=== PATIENT | male | born 1975 | race Caucasian/White ===

== ENCOUNTER 2022-11-07 12:05 | Emergency (ER) | payer OTHER, SELFPAY ==
--- NOTE | ~2022-11-07 | CT_ITS ---
EXAMINATION: CTA chest PE protocol DATE: 11/07/2022 15:41 INDICATION: Pleuritic chest pain TECHNIQUE: Computed tomography (CT) pulmonary angiogram of the chest was performed with 100 mL Omnipa que-350 intravenous contrast. Additional 3D reconstructions utilizing coronal maximum intensity proje ction (MIP) were performed. The dose-length product was 796.63 mGy-cm. COMPARISON: None FINDINGS: Excellent contrast opacification of the pulmonary arteries. There is mild streak artifact from dense contrast in the superior vena cava and right atrium. Mild scattered respiratory motion artifact which does not significantly limit evaluation. No pulmonary embolism. Mild discoid atelectasis in the ling yojana and bilateral lower lobes. Calcified right lower lobe nodule, calcified right hilar and mediastin al lymph nodes and small splenic calcifications, all consistent with old granulomatous disease. No pn eumonia, pulmonary edema or pleural effusion. Heart size is normal. No pericardial effusion. Thoracic aorta is normal in caliber with no dissection. No pathologically enlarged thoracic lymphadenopathy. Mild thoracic spondylosis. IMPRESSION: 1. No pulmonary embolism or other acute cardiopulmonary disease. Reviewed, dictated and finalized at location L. NNA INSTALLER
--- NOTE | ~2022-11-07 | XR_ITS ---
Clinical Indication: Chest pressure PA and lateral views of the chest: Comparison: None Findings: There is abnormal focal airspace opacity seen on the lateral view in the upper lung spear, without clearly delineated correlate on the PA view. No pleural effusion or pneumothorax. Cardiomedi astinal silhouette is within normal limits. Bones and soft tissues are unremarkable. Impression: Focal abnormal airspace opacity seen on the lateral view, without clear correlate on the PA view. Hina st CT recommended to better assess for possible focal pneumonia or other pulmonary pathology. Reviewed, dictated and finalized at location M. [employer] Impression: Focal abnormal airspace opacity seen on the lateral view, without clear correla te on the PA view. Chest CT recommended to better assess for possible focal pne umonia or other pulmonary pathology.
--- NOTE | 2022-11-07 12:07 | ECG_ITS ---
Measurements Intervals [place] Rate: 76 P: -9 [place]: 171 QRS: 55 QRSD: 104 T: 35 QT: 378 QTc: 425 Interpretive Statements SINUS RHYTHM EARLY TRANSITION NONSPECIFIC T-WAVE ABNORMALITY ABNORMAL ECG NO PREVIOUS ECG AVAILABLE FOR COMPARISON Electronically Signed On 11-07-2022 15:35:31 DRY ROOM OPERATOR by Rd Gonzalez M.D.
[2022-11-07 12:14] VITALS: BP 144/83; PULSE 76; RESP 18; TEMP 36.7; O2SAT 99
[2022-11-07 12:26] LABS: Basophils Percent Auto 0.5 % (0.2-1.2); Eosinophils Absolute Auto 0.1 K/mm3 (0-0.3); Eosinophils Percent Auto 1.3 % (0-4.4); Hematocrit 41.9 % (42.0-52.0); Hemoglobin 14.2 g/dL (14.0-18.0); Immature Granulocyte Absolute 0.03 K/mm3 (0.00-0.031); Immature Granulocyte Percent A 0.4 % (0-0.5); Lymphocytes Absolute Auto 2.57 K/mm3 (0.9-3.2); Mean Corpuscular HGB Conc 33.9 g/dl (32-36); Mean Corpuscular Hemoglobin 29.3 pg (26-34); Mean Corpuscular Volume 86.6 fl (80-100); Mean Platelet Volume 9.4 fl (7.4-10.4); Monocytes Absolute Auto 0.6 K/mm3 (0.1-0.6); Monocytes Percent Auto 7.4 % (2.6-8.5); Neutrophils Absolute Auto 4.9 K/mm3 (1.3-6.7); Neutrophils Percent Auto 59.4 % (45.5-73.1); Platelet Count Result 237 k/mm3 (150-375); Red Blood Count 4.84 M/mm3 (4.6-6.20); White Blood Count 8.3 K/mm3 (4.5-10.0)
[2022-11-07 12:34] LABS: Alanine Aminotransferase 33 U/L (6-50); Albumin Level 4.8 g/dL (3.5-5.1); Alkaline Phosphatase 68 U/L (38-126); Anion Gap 7 mmol/L (8-16); Aspartate Amino Transferase 29 U/L (17-59); Bilirubin,Total 1.2 mg/dL (0.2-1.3); Blood Urea Nitrogen 14 mg/dL (9-20); Calcium 9.1 mg/dL (8.4-10.2); Carbon Dioxide 31 mmol/L (22-30); Chloride 96 mmol/L (98-107); Estimated CRCL calculation 106 ml/min; Estimated Glomerular Filt Rate > 60; Glucose 91 mg/dL (65-110); Lipase 82 U/L (23-300); Potassium 4.3 mmol/L (3.4-5.0); Sodium 134 mmol/L (137-145)
[2022-11-07 12:36] LABS: INR 1.1; Partial Thromboplastin Time 30.4 SECONDS (22.3-36.8); Prothrombin Time 13.3 Seconds (11.1-14.7)
[2022-11-07 12:46] LABS: Troponin I < 0.012 ng/mL (0.000-0.034)
--- NOTE | 2022-11-07 12:55 | ED.CHESTPAIN ---
HPI - Chest Pain General Chief Complaint: Chest Pain Stated Complaint: chest pain Time Seen by Provider: 11/07/22 12:55 Source: patient Mode of arrival: ambulatory Limitations: no limitations History of Present Illness HPI narrative: Patient is a 47-year-old male with a history of hypertension and dyslipidemia, presenting to the emergency department for evaluation of chest pain. Patient with a central chest heaviness that began suddenly after the patient had awakened. Described as a significant pressure with radiation to the middle back. No associated jaw pain, neck pain. No associated diaphoresis. Patient did report mild lightheadedness and dyspnea. He reports pain with deep inspiration. Patient denies fever, chills, cough or hemoptysis. No recent COVID. Patient has a family history of hypertrophic cardiomyopathy myopathy and sudden cardiac for which she is monitored by global marketing operations manager and sees Dr. Urbano. He was referred to the emergency department today based on his symptoms after contacting his global marketing operations manager. Patient does not have a history of stress test or cardiac catheterization. Patient currently reports mild, aching pain in the middle back without radiation to the flanks. No ripping or tearing sensation. Pain is currently mild. Patient does have history of pain such as this before that has been sporadic and intermittent over the past few weeks for which patient did not seek evaluation for. Related Data Home Medications Medication Instructions Recorded Confirmed cetirizine 10 mg tablet (Zyrtec) 10 mg PO DAILY 09/02/20 02/03/22 lisinopril 10 mg tablet 10 mg PO DAILY 09/02/20 02/03/22 Allergies Allergy/AdvReac Type Severity Reaction Status Date / Time No Known Allergies Allergy Unverified 12/11/19 14:26 Review of Systems Review of Systems: CONSTITUTIONAL: Denies fever, chills, or sweats. CARDIOVASCULAR: Denies current chest pain, palpitations, or edema. RESPIRATORY: Denies cough or dyspnea. GASTROINTESTINAL: Denies abdominal pain, nausea, vomiting, or diarrhea. GENITOURINARY: Denies dysuria or hematuria. SKIN: Denies rash or itching. MUSCULOSKELETAL: Reports middle back pain without other joint pain, or myalgia. NEUROLOGIC: Denies headache, numbness, or weakness. [facility] Past Medical History Medical History (Updated 11/07/22 @ 16:17 by Paige Arana MD) Allergies Anxiety Elevated bilirubin Gilbert syndrome Hyperlipidemia Hypersomnia Hypertension Hypothyroidism LVH (left ventricular hypertrophy) Prediabetes Family History Family History Father Hypertension Family history of elevated blood lipids Skin cancer Mother Hypertension Family history of elevated blood lipids Obstructive hypertrophic cardiomyopathy Daughter Heart disease Social History Social History Smoking status: Never smoker Alcohol intake: never Exam Narrative: GENERAL: Awake, alert, conversant HEAD: Normocephalic, atraumatic. EYES: PERRLA and EOMI. ENT: Nares clear, no rhinorrhea or epistaxis. Mucous membranes moist. NECK: Supple. CHEST: No respiratory distress, breathing even and non labored HEART: Regular rate, sinus rhythm ABDOMEN:Non distended, non tender EXTREMITIES: Normal range of motion. No edema. SKIN: Warm, dry, no rash. NEURO:No focal deficits. Alert and oriented x3 Course Vital Signs Vital signs: Vital Signs Temperature 36.7 C 11/07/22 12:14 Pulse Rate 76 11/07/22 12:14 Respiratory Rate 18 11/07/22 12:14 Blood Pressure 144/83 H 11/07/22 12:14 Pulse Oximetry 99 11/07/22 12:14 Oxygen Delivery Room Air 11/07/22 12:14 Temperature 36.7 C 11/07/22 12:14 Pulse Rate 76 11/07/22 12:14 Respiratory Rate 18 11/07/22 12:14 Blood Pressure 144/83 H 11/07/22 12:14 Pulse Oximetry 99 11/07/22 12:14 Oxygen Delivery Room Air 11/07/22 12:14
--- NOTE | 2022-11-07 13:16 | ECG_ITS ---
Measurements Intervals [place] Rate: 62 P: 0 WV: 169 QRS: 47 QRSD: 108 T: 34 QT: 395 QTc: 403 Interpretive Statements SINUS RHYTHM NORMAL ECG COMPARED TO ECG 11/07/2022 12:11:34 NO SIGNIFICANT CHANGES Electronically Signed On 11-07-2022 15:36:54 POLITICAL RESEARCH SCIENTIST by Rd Gonzalez M.D.
[2022-11-07 16:04] LABS: Troponin I < 0.012 ng/mL (0.000-0.034)
[2022-11-07 16:21] VITALS: PULSE 82; RESP 20; O2SAT 97
[2022-11-07 16:25] VITALS: BP 124/80
[2022-11-07 16:36] VITALS: BP 144/86; PULSE 72; PULSE 80; RESP 16; O2SAT 97
== END 2022-11-07 16:37 | disposition home or self-care (01) ==
PROVIDERS: Emergency Provider Emergency Medicine; PCP Internal Medicine
DX: R07.89 Other chest pain (principal); I10 Essential (primary) hypertension; E78.5 Hyperlipidemia, unspecified; E03.9 Hypothyroidism, unspecified; R73.03 Prediabetes; E80.4 Gilbert syndrome; R94.31 Abnormal electrocardiogram [ECG] [EKG]
CPT/HCPCS: 36415; 71046; 71275; 80053; 83690; 84484; 85025; 85610; 85730; 93005; 99284; Q9967

== ENCOUNTER 2023-05-07 11:40 | Outpatient (CLI) | payer OTHER, SELFPAY | END 2023-05-07 11:41 | disposition home or self-care (01) | LOC: ANHGOSHLAB 11:41 | PROVIDERS: PCP Internal Medicine; Visit Provider Clinical Nurse Specialist | DX: E03.9 Hypothyroidism, unspecified (principal) | CPT/HCPCS: 36415; 84443 ==

== ENCOUNTER 2023-09-24 11:49 | Day surgery (SDC) | payer OTHER, SELFPAY ==
[2023-09-07 15:15] VITALS: BMI 31.6
[2023-09-17 13:16] VITALS: BMI 31.4
--- NOTE | 2023-09-21 14:07 | PM.HPGS ---
History of Present Illness History of Present Illness Consent: Risks, benefits, and alternatives have been discussed and questions answered. Patient agrees to proceed with procedure. Chief complaint: Z12.11 Screening neoplasm of the colon Narrative: Rd Fung is a 48 year old male Referred for colon cancer screening. Review of Systems Review of Systems: All systems reviewed & are unremarkable except as noted in HPI and below PMFSH Past Medical History Medical History Allergies Anxiety Elevated bilirubin Gilbert syndrome Hyperlipidemia Hypersomnia Hypertension Hypothyroidism LVH (left ventricular hypertrophy) ROSALIO (obstructive sleep apnea) Prediabetes Family History Family History Father Hypertension Family history of elevated blood lipids Skin cancer Mother Hypertension Family history of elevated blood lipids Obstructive hypertrophic cardiomyopathy Daughter Heart disease Social History Social History Social History: Caffeine- soda/tea Smoking status: Never smoker Alcohol intake: never Substance use: never Substance use type: does not use Lack of Transportation: No Lack of Food: Never True Current Housing: I Have Housing Concerned About Future Housing: No Difficulty Paying Gas/Electric Bills: No Difficulty Paying for Meds: No Currently Unemployed: No Education: Master's Degree or Higher Difficulty w/ Childcare or Family Care: No Living arrangements: with family Spiritual care concerns: No Meds Home Medications and Allergies Home Medications Medication Instructions Recorded Confirmed Type cetirizine 10 mg tablet (Zyrtec) 10 mg PO DAILY 09/02/20 09/17/23 History lisinopril 10 mg tablet 10 mg PO DAILY 09/02/20 09/17/23 History aspirin 81 mg tablet,delayed 81 mg PO DAILY 05/07/23 09/17/23 History release (Adult Low Dose Aspirin) atorvastatin 20 mg tablet 20 mg PO DAILY 05/07/23 09/17/23 History levothyroxine 25 mcg tablet 25 mcg PO DAILY #90 tabs 06/26/23 09/17/23 Rx sodium,potassium,mag sulfates 17.5 See Rx Instructions PO .COMPLEX 09/21/23 Rx gram-3.13 gram-1.6 gram oral soln #354 mL (Suprep Bowel Prep Kit) Allergies Allergy/AdvReac Type Severity Reaction Status Date / Time No Known Allergies Allergy Verified 09/24/23 12:44 Exam Const: General: alert Orientation/consciousness: patient oriented x3 Resp: Auscultation: clear to auscultation bilaterally Cardio: Rhythm: regular rhythm GI: GI Palp: Yes Soft to palpation and No Tenderness to palpation present (GI) Neuro: General: patient oriented x3 Assessment and Plan Assessment and plan (1) Screening for colon cancer: Code(s): Z12.11 - Encounter for screening for malignant neoplasm of colon Status: Acute Assessment and Plan: Colonoscopy with possible biopsy or polypectomy or cautery or injection of substances.
--- NOTE | 2023-09-24 09:32 | P.PNAN_ITS ---
Anes - Initial Pre Proc Eval Procedure: Operation Date: 09/24/23 14:00 Proposed Procedures p Screening Colonoscopy - Gokul Maddox MD Date/Time: 09/24/23 09:32 Surgeon: Gokul Maddox MD Pre Op Diagnosis: Z12.11 Screening neoplasm of the colon Patient Data Age: 48 Gender: M Height: 1.93 m Weight: 117 kg Allergies Allergy/AdvReac Type Severity Reaction Status Date / Time No Known Allergies Allergy Verified 09/24/23 12:44 Home Medications Medication Instructions Recorded Confirmed Type cetirizine 10 mg tablet (Zyrtec) 10 mg PO DAILY 09/02/20 09/17/23 History lisinopril 10 mg tablet 10 mg PO DAILY 09/02/20 09/17/23 History aspirin 81 mg tablet,delayed 81 mg PO DAILY 05/07/23 09/17/23 History release (Adult Low Dose Aspirin) atorvastatin 20 mg tablet 20 mg PO DAILY 05/07/23 09/17/23 History levothyroxine 25 mcg tablet 25 mcg PO DAILY #90 tabs 06/26/23 09/17/23 Rx sodium,potassium,mag sulfates 17.5 See Rx Instructions PO .COMPLEX 09/21/23 Rx gram-3.13 gram-1.6 gram oral soln #354 mL (Suprep Bowel Prep Kit) Patient hx anesthesia problems: none Family hx anesthesia problems: none Results Review: All pre-operative results and documents have been reviewed as part of the pre- operative evaluation. [facility] Past Medical History Medical History (Updated 09/24/23 @ 09:32 by Andres Washington DO) Allergies Anxiety Elevated bilirubin Gilbert syndrome Hyperlipidemia Hypersomnia Hypertension Hypothyroidism LVH (left ventricular hypertrophy) ROSALIO (obstructive sleep apnea) Prediabetes Family History Family History Father Hypertension Family history of elevated blood lipids Skin cancer Mother Hypertension Family history of elevated blood lipids Obstructive hypertrophic cardiomyopathy Daughter Heart disease Social History Social History (Updated 09/19/23 @ 15:34 by Ana Maria Fernandes) Social History: Caffeine- soda/tea Smoking status: Never smoker Alcohol intake: never Substance use: never Substance use type: does not use Lack of Transportation: No Lack of Food: Never True Current Housing: I Have Housing Concerned About Future Housing: No Difficulty Paying Gas/Electric Bills: No Difficulty Paying for Meds: No Currently Unemployed: No Education: Master's Degree or Higher Difficulty w/ Childcare or Family Care: No Living arrangements: with family Spiritual care concerns: No Anes - Eval Final PreProcedure Day of Procedure 09/24/23 09:32 Patient weight: obese Heart: regular rate and rhythm Lungs: clear to auscultation Airway: Mallampati scale class II Neurological: alert and oriented Last oral intake: >/= 8 hours ASA classification: III Emergent: no Anesthetic plan: proceed Anesthesia type and monitoring: general GIVS and standard monitoring Results Review: All pre-operative results and documents have been reviewed as part of the pre- operative evaluation. Informed Consent: The patient's anesthetic plan and its attendant risks and benefits were discussed with the patient/family/POA. Questions were solicited and answers provided to the satisfaction of the patient/family/POA.
[2023-09-24 12:45] VITALS: BP 134/88; PULSE 84; RESP 16; TEMP 36.5; O2SAT 98
[2023-09-24] MEDS: LACTATED RINGERS 1,000 ML 150 ML IV CONT (12:56)
[2023-09-24 14:12] VITALS: BP 97/68; PULSE 73; RESP 18; O2SAT 97
--- NOTE | 2023-09-24 14:19 | WPDANESPN ---
Anes - Prog Note Post-Op Date/Time: 09/24/23 14:19 Cardiovascular status: normal Respiratory status: normal Airway patency: baseline Mental status: baseline Post-Op hydration status: normal Vital Signs: Last Vital Signs Temp 36.5 C 09/24/23 12:45 Pulse 73 09/24/23 14:12 Resp 18 09/24/23 14:12 BP 97/68 L 09/24/23 14:12 Pulse Ox 97 09/24/23 14:12 O2 Del Method Room Air 09/24/23 14:12 Pain Score (VAS): 0 I/O: Intake & Output 09/23/23 09/24/23 09/24/23 23:59 07:59 15:59 Intake Total 200 Balance 200 Post-procedural complaints: none Patient Feedback: Patient satisfied with anesthetic care. Other Findings: Patient vital signs back to baseline. Patient denies nausea and vomiting. Patient's pain under control. Patient OK for discharge.
[2023-09-24 14:22] VITALS: BP 94/68; PULSE 72; RESP 16; O2SAT 97
[2023-09-24 14:32] VITALS: BP 115/80; PULSE 65; RESP 15; O2SAT 99
== END 2023-09-24 14:48 | disposition home or self-care (01) ==
PROVIDERS: PCP Internal Medicine; Visit Provider Internal Medicine Gastroenterology
PROC: 0DJD8ZZ Inspection of Lower Intestinal Tract, Via Natural or Artificial Opening Endoscopic (ICD-10-PCS; CPT 45378; principal; 2023-09-24 14:00)
DX: Z12.11 Encounter for screening for malignant neoplasm of colon (principal)
CPT/HCPCS: 45378

== ENCOUNTER 2023-10-23 15:07 | Outpatient (CLI) | payer OTHER, SELFPAY ==
--- NOTE | ~2023-10-23 | CT_ITS ---
CT of the Abdomen and Pelvis: Indication: Hernia Technique: 2.5 mm axial scans were obtained through the abdomen and pelvis following intravenous adm inistration of 100 cc of Omnipaque 350. Dose reduction technique was used on this scan by utilizing a utomated exposure control and iterative reconstruction technique. The dose-length product (DLP) was 1 388.15 mGy-cm. Findings: Scans through the lung bases are unremarkable. The liver, spleen, pancreas, gallbladder, adrenals and kidneys are within normal limits. No evidence of aortic aneurysm. No lymphadenopathy. No bowel obstruction or bowel wall thickening. There is no evidence to suggest acute appendicitis. Images through the pelvis were performed. Urinary bladder unremarkable. No pelvic mass evident. No as cites. Small fat-containing left inguinal hernia noted. Impression: Small fat-containing left inguinal hernia. Reviewed, dictated and finalized at [facility]. ING SAFETY OFFICER Impression: Small fat-containing left inguinal hernia.
[2023-10-23 15:41] LABS: Estimated Glomerular Filt Rate 55
== END 2023-10-23 15:08 | disposition home or self-care (01) ==
PROVIDERS: PCP Internal Medicine; Visit Provider Clinical Nurse Specialist
DX: K40.90 Unilateral inguinal hernia, without obstruction or gangrene, not specified as recurrent (principal); R10.9 Unspecified abdominal pain
CPT/HCPCS: 74177; Q9967

== ENCOUNTER 2023-11-14 09:57 | Outpatient (CLI) | payer OTHER, SELFPAY ==
--- NOTE | 2023-11-14 10:07 | ECG_ITS ---
Measurements Intervals [place] Rate: 61 P: -15 WV: 186 QRS: 53 QRSD: 105 T: 20 QT: 377 QTc: 382 Interpretive Statements SINUS RHYTHM COMPARED TO ECG 11/07/2022 14:34:16 NO SIGNIFICANT CHANGES Electronically Signed On 11-14-2023 20:53:53 COMMUNICATIONS INTERN by Jeff Mcghee M.D.
== END 2023-11-14 09:58 | disposition home or self-care (01) ==
LOC: ANHSURGERY 10:01
PROVIDERS: PCP Internal Medicine; Visit Provider Surgery
DX: K40.90 Unilateral inguinal hernia, without obstruction or gangrene, not specified as recurrent (principal); I10 Essential (primary) hypertension; Z01.818 Encounter for other preprocedural examination
CPT/HCPCS: 36415; 86850; 86900; 86901; 93005

== ENCOUNTER 2023-11-16 03:24 | Day surgery (SDC) | payer OTHER, SELFPAY ==
[2023-11-07 10:02] VITALS: BMI 33.3
--- NOTE | 2023-11-07 10:08 | PC.NURSE ---
Report to the Outpatient Waiting Room, entrance under the green pavilion located off [facility], at time 11:00 on date 11/16/23. Planned Procedure Time: 1:00. Time changes happen often and if your time is changed the preop area will call you the afternoon before. - You and your visitor will be asked to self-screen and do not enter if you have any COVID symptoms. - A mask is optional within the hospital at this time. Patients may have clear liquids (water, carbonated beverages, clear teas, apple juice) until 3 hours prior to surgery (10:00) with a maximum of 20 ounces. - No food from midnight until time of surgery Take the following medications with a SIP of water the morning of surgery: LEVOTHYROXINE DO NOT STOP ANY OF YOUR OTHER PRESCRIPTION MEDICATIONS PRIOR TO SURGERY ?EXCEPT THE FOLLOWING Medications to discontinue per physician: VITAMINS Date to take last dose: 11/12/23 Please no make-up, nail burundian, hairspray, perfume, deodorant, or body powder the day of surgery. No jewelry (including any body piercings) or valuables the day of surgery, leave them at home. Please take a shower or bath the night before, or the morning of, surgery with an antibacterial soap. Wear comfortable, loose fitting clothing. - Jewelry must be removed prior to entering the operating room. Rings and piercings that are not removed may be cut off. - The hospital will not accept responsibility for valuables. - Please leave all valuables, including medications, at home the day of surgery. If you are going home after surgery, a licensed route sales delivery driver must drive you home. - NO public transportation without another adult if you receive anesthesia. - We recommend that an adult stay with you for 24 hours following discharge. - We also recommend that you do not drive, make important decision, drink alcoholic beverages, or take any drugs that were not prescribed by your health care provider for at least 24 hours after your discharge time. Follow any additional instructions given to you from your surgeon. If you or anyone in your household have experienced Covid symptoms in the past week, please notify your surgeon or the nurse liaison at the phone number below for possible testing. Telephone instructions given to PT Alessandro JENNINGS and asked if any additional questions and then verbalized understanding. Patient advised to call surgeon office or pre surgery nurse liaison [phone] if any additional questions.
[2023-11-16] VITALS (10 sets, daily range): BP systolic 100–126; BP diastolic 57–76; PULSE 59–80; RESP 9–21; TEMP 36.2–36.5; O2SAT 93–99
--- NOTE | 2023-11-16 08:54 | WPDHPUPDATE1 ---
History and Physical Update Update Date/Time: 11/16/23 08:54 History and Physical has been reviewed, including an updated exam of the patient. There are NO changes in the patient's condition. Risks, benefits, and alternatives have been discussed and questions answered. Patient agrees to proceed with procedure.
[2023-11-16] MEDS: ACETAMINOPHEN 500 MG TABLET 1000 MG PO (10:51)
[2023-11-16] MEDS: KETOROLAC 15 MG/ML VIAL (*BKC) IV PUSH (11:20)
--- NOTE | 2023-11-16 11:27 | WPDANESEPPF ---
Anes - Initial Pre Proc Eval Procedure: Operation Date: 11/16/23 12:30 Proposed Procedures p Robotic Laparoscopic Left Inguinal Hernia Repair with Mesh - Jm Rucker MD Date/Time: 11/16/23 11:27 Surgeon: Jm Ruckre MD Pre Op Diagnosis: Lt Ing Hernia Patient Data Age: 48 Gender: M Height: 1.91 m Weight: 120.3 kg Last Vital Signs Temp 97.7 F 11/16/23 11:00 Pulse 78 11/16/23 11:00 Resp 16 11/16/23 11:00 BP 126/74 11/16/23 11:00 Pulse Ox 97 11/16/23 11:00 O2 Del Method Room Air 11/16/23 11:00 Allergies Allergy/AdvReac Type Severity Reaction Status Date / Time No Known Allergies Allergy Verified 11/07/23 10:01 Home Medications Medication Instructions Recorded Confirmed Type cetirizine 10 mg tablet (Zyrtec) 10 mg PO DAILY 09/02/20 11/07/23 History lisinopril 10 mg tablet 10 mg PO DAILY 09/02/20 11/07/23 History aspirin 81 mg tablet,delayed 81 mg PO DAILY 05/07/23 11/07/23 History release (Adult Low Dose Aspirin) atorvastatin 20 mg tablet 20 mg PO DAILY 05/07/23 11/07/23 History levothyroxine 25 mcg tablet 25 mcg PO DAILY #90 tabs 06/26/23 11/07/23 Rx multivitamin 1 tablet PO DAILY 11/07/23 11/07/23 History Patient hx anesthesia problems: none Family hx anesthesia problems: none Results Review: All pre-operative results and documents have been reviewed as part of the pre-operative evaluation. [facility] Past Medical History Medical History (Updated 10/29/23 @ 10:13 by Liz Martinez CMA) Allergies Anxiety Elevated bilirubin Gilbert syndrome Hyperlipidemia Hypersomnia Hypertension Hypothyroidism LVH (left ventricular hypertrophy) ROSALIO (obstructive sleep apnea) Prediabetes Surgical History Surgical History History of colonoscopy Family History Family History Father Hypertension Family history of elevated blood lipids Skin cancer Mother Hypertension Family history of elevated blood lipids Obstructive hypertrophic cardiomyopathy Daughter Heart disease Social History Social History Social History: Caffeine- soda/tea Smoking status: Never smoker Alcohol intake: never Substance use: never Substance use type: does not use Lack of Transportation: No Lack of Food: Never True Current Housing: I Have Housing Concerned About Future Housing: No Difficulty Paying Gas/Electric Bills: No Difficulty Paying for Meds: No Currently Unemployed: No Education: Master's Degree or Higher Difficulty w/ Childcare or Family Care: No Living arrangements: with family 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 Informed Consent: The patient's anesthetic plan and its attendant risks and benefits were discussed with the patient/family/POA. Questions were solicited and answers provided to the satisfaction of the patient/family/POA.
[2023-11-16] MEDS: LACTATED RINGERS 1,000 ML 30 ML IV CONT ×3 (11:35→15:49)
[2023-11-16] MEDS: ceFAZolin 3 GM/D5W 100 ML 100 ML IVPB (12:46)
[2023-11-16] MEDS: BUPIVACAINE/EPINEPHRINE 0.5% 50 ML VIAL 30 ML INFILTRATE (13:18)
--- NOTE | 2023-11-16 14:28 | W.PM.PROC2 ---
Procedure Note - Detailed Date of Procedure 11/16/23 Pre-op Diagnosis Lt Ing Hernia Post-op Diagnosis Same Procedure Performed Robotic laparoscopic repair left inguinal hernia with mesh Surgeon Jm Rucker MD [facility] ROSALES Anesthesia General and Local Indications patient noticed a bulge in the groin that had gotten bigger and was bothersome. He was seen in the office and found to have a reducible left inguinal hernia. He is taken to surgery now for repair Findings this was an indirect hernia. There was no bowel involvement Description of Procedure patient was taken to surgery and induced into general anesthesia. The abdomen is prepped and draped. The proposed trocar sites were marked on the skin and then local was infiltrated into each of the different trocar sites. The left upper quadrant site was placed 1st. This was a 5 mm applied Medical optical trocar and passed into the peritoneal cavity without difficulty. Insufflation was carried out and then the 2 robotic trocars were placed under direct visualization. Following that we placed the mesh and sutures that would be used into the abdominal cavity near the hernia. The 5 mm port was then changed out for an 8 mm robotic port. The robotic arms were brought into the field. The camera was docked and targeted. The instrument arms were docked and instruments were placed. There were positioned in near the hernia defect itself. The surgeon then broke scrub and went to the robotic console. A peritoneal flap was created along the upper margin of the left lower pelvis that would cover the hernia and the spermatic cord vessels. The flap was developed from anterior to posterior. Medially, we dissected down on to the posterior aspect of the left rectus muscle on fall this down to Renard's ligament and the pubis. Care was taken to minimize any bleeding. We then dissected further medially and exposed the medial margin of the right rectus muscle. We dissected posterior to Renard's ligament and the pubis about 2-3 cm. Laterally, near the channel process plant operator nerve and fossa, the fatty tissue on the medial Coopers ligament was taken down. I then went back laterally and extended the peritoneal dissection of the flap. Next, the hernia was grasped and retracted. Dissection over the anterior aspect of the hernia sac was carried out to divide the transversalis attachments. Sequentially, the hernia was further reduced and more transversalis was dissected and divided. The spermatic vessels and vas deferens were noted and were carefully dissected off the hernia sac. There was quite a bit of fatty tissue in with the hernia which was reduced as well. Bleeding was minimal. Eventually the into the sac was found and was carefully dissected from the surrounding structures and cord vessels. Additional dissection to keep the peritoneal flap at least 4 cm posterior to the hernia defect. Inspection showed ample dissection of the flap with reduction of the hernia and exposure of the relevant structures to place and secure the mesh. A 17 x 12 extra-large mid 3DMax left mesh was then placed over the structures of the inguinal area. I sutured the mesh medially and posterior to Renard's ligament with a 3-0 Vicryl suture. The mesh was sutured anteriorly both on the medial and on the lateral side of the inferior epigastric vessels to secure it. All looked good. I then closed the peritoneal flap with running 3 0 V lock suture. The Vicryl and V lock needles were then removed from the abdominal cavity. The robotic instruments were removed. The robot was undocked. The trocars were then removed. Skin wounds were closed with subcuticular 4-0 Monocryl skin suture. The wounds were dressed with Exofin surgical adhesive. Sponge and needle counts were correct x2. Implants Extra-large left mid 17 x 12 cm 3DMax mesh Estimated Blood Loss -5 Drains No Packing No Pathology None sent Complications No immediate complications
[2023-11-16] MEDS: ONDANSETRON INJ 4 MG/2 ML VIAL IV PUSH (15:32)
[2023-11-16] MEDS: oxyCODONE HCL (*CRX) 5 MG TAB IR PO (15:32)
== END 2023-11-16 16:52 | disposition home or self-care (01) ==
PROVIDERS: PCP Internal Medicine; Visit Provider Surgery
PROC: 8E0Y4CZ Robotic Assisted Procedure of Lower Extremity, Percutaneous Endoscopic Approach (ICD-10-PCS; CPT 49650; principal; 2023-11-16 12:30)
DX: K40.90 Unilateral inguinal hernia, without obstruction or gangrene, not specified as recurrent (principal); E78.5 Hyperlipidemia, unspecified; I10 Essential (primary) hypertension; E03.9 Hypothyroidism, unspecified; G47.33 Obstructive sleep apnea (adult) (pediatric); E80.4 Gilbert syndrome
CPT/HCPCS: 49650; S2900; 36415; 86850; 86900; 86901; 93005; A9270; C1781; J0690; J1100; J1170; J1885; J2250; J2405; J2704; J3010; J7120

== ENCOUNTER 2025-10-09 09:20 | Outpatient (CLI) | payer OTHER, SELFPAY ==
--- NOTE | ~2025-10-09 | US_ITS ---
EXAMINATION: US soft tissue upper back, 10/09/2025 9:21 [facility]AD[facility] HISTORY: R22.9 - Localized swelling, mass and lump, unspecified Comparison: None Technique: Perez-scale and color Doppler images were obtained. Findings: Correlating with the palpable area there is no abnormal mass or mass effect identified, there is no increased flow IMPRESSION: Unremarkable exam Reviewed, dictated and finalized at location P. [facility] CRANE LADLE IMPRESSION: Unremarkable exam
== END 2025-10-09 09:21 | disposition home or self-care (01) ==
LOC: GOSHIMG 09:20
PROVIDERS: PCP Clinical Nurse Specialist; Visit Provider Clinical Nurse Specialist
DX: R22.9 Localized swelling, mass and lump, unspecified (principal)
CPT/HCPCS: 76604

== ENCOUNTER 2025-10-28 07:51 | Outpatient (CLI) | payer OTHER, SELFPAY ==
--- NOTE | ~2025-10-28 | CT_ITS ---
EXAMINATION:CT diagnostic chest w con DATE: 10/28/2025 08:22 INDICATION: Swelling and mass TECHNIQUE: Computed tomography (CT) of the chest was performed without intravenous contrast. The dose-length product (DLP) was 459.73 mGy-cm. COMPARISON: November 07, 2022 FINDINGS: The lungs are clear other than minimal dependent atelectatic appearing changes. Heart size normal. Great vessels also appear within normal is. Calcified lymph nodes consistent with old granulomatous disease. Bones appear intact. No acute process seen in the visualized portions of the upper abdomen or extrathoracic soft tissues. Simple/benign appearing lipomatous mass in the deep subcutaneous soft tissues along the right side of the posterior thorax at the level of the tip of the scapula seen on image 135 series 3. This appears to measure approximately 11.0 x 3.3 x 6.7 cm in the transverse by anteroposterior by septal caudal dimension with benign lipoma features. IMPRESSION: 1. Benign-appearing lipoma adjacent to the lower margin of the right scapula/latissimus dorsi measuring 11.0 x 3.3 x 6.7 cm. If this is not the area of clinical concern, correlation with follow-up imaging and/or surgical consultation is recommended. 2. If there is another area of possible mass, consider chest MRI or repeat examination with tailored [id number]. Reviewed, dictated and finalized at location A. LOADER IMPRESSION: 1. Benign-appearing lipoma adjacent to the lower margin of the right scapula/la tissimus dorsi measuring 11.0 x 3.3 x 6.7 cm. If this is not the area of clinic al concern, correlation with follow-up imaging and/or surgical consultation is recommended. 2. If there is another area of possible mass, consider chest MRI or repeat exam ination with tailored [id number].
[2025-10-28 09:18] LABS: Estimated Glomerular Filt Rate 54
== END 2025-10-28 07:52 | disposition home or self-care (01) ==
PROVIDERS: PCP Clinical Nurse Specialist; Visit Provider Clinical Nurse Specialist
DX: R22.2 Localized swelling, mass and lump, trunk (principal)
CPT/HCPCS: 71260; Q9967